=== PATIENT | female | born 1995 | race Caucasian/White ===

== ENCOUNTER 2020-04-09 10:19 | Outpatient (CLI) | payer OTHER, SELFPAY ==
[2020-04-09 11:41] LABS: Beta HCG Quantitative < 2.39 mIU/ML
[2020-04-14 06:13] LABS: Progesterone 1.2 ng/mL (***)
== END 2020-04-09 10:20 | disposition home or self-care (01) ==
PROVIDERS: PCP Family Medicine; Visit Provider Obstetrics & Gynecology
DX: N91.2 Amenorrhea, unspecified (principal)
CPT/HCPCS: 36415; 84144; 84702; 85461

== ENCOUNTER 2020-05-28 09:32 | Outpatient (CLI) | payer OTHER, SELFPAY ==
[2020-06-02 05:03] LABS: Progesterone 9.6 ng/mL (***)
== END 2020-05-28 09:33 | disposition home or self-care (01) ==
LOC: ANHLAB 09:34
PROVIDERS: PCP Family Medicine; Visit Provider Obstetrics & Gynecology
DX: N97.9 Female infertility, unspecified (principal)
CPT/HCPCS: 36415; 84144

== ENCOUNTER 2022-04-18 12:33 | Outpatient (CLI) | payer BC, SELFPAY ==
[2022-04-18 13:23] LABS: Beta HCG Quantitative 41.87 mIU/ML
[2022-04-21 03:39] LABS: Progesterone 7.7 ng/mL (***)
== END 2022-04-18 12:34 | disposition home or self-care (01) ==
LOC: ANHLAB 12:36
PROVIDERS: PCP Family Medicine; Visit Provider Obstetrics & Gynecology
DX: O20.0 Threatened abortion (principal); Z3A.00 Weeks of gestation of pregnancy not specified
CPT/HCPCS: 36415; 84144; 84702

== ENCOUNTER 2022-04-20 13:17 | Outpatient (CLI) | payer BC, SELFPAY ==
[2022-04-20 14:38] LABS: Beta HCG Quantitative 56.04 mIU/ML
== END 2022-04-20 13:18 | disposition home or self-care (01) ==
LOC: ANHLAB 13:19
PROVIDERS: PCP Family Medicine; Visit Provider Obstetrics & Gynecology
DX: O20.0 Threatened abortion (principal); Z3A.00 Weeks of gestation of pregnancy not specified
CPT/HCPCS: 36415; 84702

== ENCOUNTER 2022-04-25 10:30 | Outpatient (CLI) | payer BC, SELFPAY ==
[2022-04-25 11:38] LABS: Beta HCG Quantitative 53.34 mIU/ML
== END 2022-04-25 10:31 | disposition home or self-care (01) ==
LOC: ANHLAB 10:32
PROVIDERS: PCP Family Medicine; Visit Provider Obstetrics & Gynecology
DX: O20.0 Threatened abortion (principal); Z3A.00 Weeks of gestation of pregnancy not specified
CPT/HCPCS: 36415; 84702; 86850; 86900; 86901

== ENCOUNTER 2022-04-26 16:27 | Outpatient (CLI) | payer BC, SELFPAY ==
--- NOTE | ~2022-04-26 | US_ITS ---
EXAMINATION: US OB <=14 wk fetus w TV INDICATION: O00.90 - Unspecified ectopic without intrauteri... TECHNIQUE: Sonography of the pelvis was performed by transabdominal and transvaginal techniques. COMPARISON: None. RESULT: Uterus: - Orientation: Anteverted - Size: 7.2 x 3.9 x 4.0 cm - Myometrium: homogeneous echogenicity . Endometrial stripe measures 1.1 cm Gestation: - Intrauterine gestational sac: Not seen Right ovary: - Size : 2.6 x 2.1 x 2.1 cm - No adnexal mass. Ovarian vascular flow is present. Left ovary: - Size: 1.6 x 0.9 x 1.7 cm - No adnexal mass . Ovarian vascular flow is present. Pelvis free fluid: None. IMPRESSION: Positive test with no intrauterine gestational sac visualized. Findings represent pregnanc y of unknown location. Differential diagnosis includes early normal, failed early, or ectopic pregna ncy. Recommend follow-up serial beta-hCG values. Ultrasound follow-up should be considered as clini gloria warranted. Reviewed, dictated and finalized at location K. IMPRESSION: Positive test with no intrauterine gestational sac visualized. Findi ngs represent of unknown location. Differential diagnosis includes e tor normal, failed early, or ectopic . Recommend follow-up serial be ta-hCG values. Ultrasound follow-up should be considered as clinically warrant ed.
== END 2022-04-26 16:28 | disposition home or self-care (01) ==
PROVIDERS: PCP Family Medicine; Visit Provider Obstetrics & Gynecology
DX: O00.90 Unspecified ectopic pregnancy without intrauterine pregnancy (principal); Z3A.00 Weeks of gestation of pregnancy not specified
CPT/HCPCS: 76801; 76817

== ENCOUNTER 2022-04-27 11:17 | Outpatient (CLI) | payer BC, SELFPAY ==
[2022-04-27 11:51] LABS: Hematocrit 40.9 % (37.0-47.0); Hemoglobin 13.5 g/dL (12.0-15.0); Mean Corpuscular Hemoglobin 28.2 pg (26-34); Mean Corpuscular Volume 85.6 fl (80-100); Mean Platelet Volume 8.4 fl (7.4-10.4); Platelet Count Result 305 k/mm3 (150-375); Red Blood Count 4.78 M/mm3 (4.2-5.4); Red Cell Distribution Width 12.7 % (11.5-14.5); White Blood Count 11.6 K/mm3 (4.5-10.0)
[2022-04-27 12:03] LABS: Alanine Aminotransferase 22 U/L (6-35); Albumin Level 4.3 g/dL (3.5-5.1); Alkaline Phosphatase 85 U/L (38-126); Anion Gap 6 mmol/L (8-16); Aspartate Amino Transferase 19 U/L (14-36); Bilirubin,Total 0.5 mg/dL (0.2-1.3); Blood Urea Nitrogen 10 mg/dL (7-17); Calcium 8.6 mg/dL (8.4-10.2); Carbon Dioxide 27 mmol/L (22-30); Chloride 105 mmol/L (98-107); Estimated Glomerular Filt Rate > 60; Glucose 124 mg/dL (65-110); Sodium 138 mmol/L (137-145)
== END 2022-04-27 11:18 | disposition home or self-care (01) ==
LOC: ANHLAB 11:18
PROVIDERS: PCP Family Medicine; Visit Provider Obstetrics & Gynecology
DX: O00.90 Unspecified ectopic pregnancy without intrauterine pregnancy (principal); Z3A.00 Weeks of gestation of pregnancy not specified
CPT/HCPCS: 36415; 80053; 84702; 85027

== ENCOUNTER 2022-04-28 14:27 | Outpatient (RCR) | payer BC, SELFPAY ==
[2022-04-28 15:22] VITALS: BP 142/75; PULSE 101; TEMP 36.1; O2SAT 100
[2022-04-28] MEDS: METHOTREXATE SODIUM/PF 50 MG/2 ML VIAL 100 MG IM (15:36)
== END 2022-04-28 16:00 ==
LOC: AMCINF 14:27
PROVIDERS: PCP Family Medicine; Referring Provider Obstetrics & Gynecology; Visit Provider Internal Medicine Hematology & Oncology
DX: O00.90 Unspecified ectopic pregnancy without intrauterine pregnancy (principal)
CPT/HCPCS: 96401; J9260

== ENCOUNTER 2022-05-01 12:50 | Outpatient (CLI) | payer BC, SELFPAY ==
[2022-05-01 13:35] LABS: Beta HCG Quantitative 5.66 mIU/ML
== END 2022-05-01 12:51 | disposition home or self-care (01) ==
LOC: ANHOBOP 12:51
PROVIDERS: PCP Family Medicine; Visit Provider Obstetrics & Gynecology
DX: O00.90 Unspecified ectopic pregnancy without intrauterine pregnancy (principal); Z3A.00 Weeks of gestation of pregnancy not specified
CPT/HCPCS: 36415; 84702

== ENCOUNTER 2022-05-05 13:25 | Outpatient (CLI) | payer BC, SELFPAY ==
[2022-05-05 15:13] LABS: Beta HCG Quantitative < 2.39 mIU/ML
== END 2022-05-05 13:26 | disposition home or self-care (01) ==
LOC: ANHLAB 13:26
PROVIDERS: PCP Family Medicine; Visit Provider Obstetrics & Gynecology
DX: O00.90 Unspecified ectopic pregnancy without intrauterine pregnancy (principal)
CPT/HCPCS: 36415; 84702

== ENCOUNTER 2023-03-23 10:07 | Outpatient (CLI) | payer OTHER, SELFPAY ==
[2023-03-23 10:57] LABS: Beta HCG Quantitative < 2.39 mIU/ML
[2023-03-30 04:46] LABS: Progesterone 1.8 ng/mL (***)
== END 2023-03-23 10:08 | disposition home or self-care (01) ==
PROVIDERS: PCP Family Medicine; Visit Provider Obstetrics & Gynecology
DX: O09.11 Supervision of pregnancy with history of ectopic pregnancy, first trimester (principal); Z87.59 Personal history of other complications of pregnancy, childbirth and the puerperium; Z3A.00 Weeks of gestation of pregnancy not specified
CPT/HCPCS: 36415; 84144; 84702